=== PATIENT | female | born 1985 | race Caucasian/White ===

== ENCOUNTER → 2017-03-01 | Outpatient (CLI) | payer OTHER ==
[~2017-03-01] MED LIST: ABIL5TAB PO; ADDE20CA PO; AMOXICILLIN PO; AUGM500T34 PO; CETI10TA PO; DEPA500T OR; KLON1TAB OR; KLON2TAB OR; PERCOCET PO; PROVENTIL INH; TRAZ50TA OR; TYLENOL PO; XANA0.5T PO; ZOLO50TA OR
--- NOTE | 2017-03-01 16:31 | REP ---
ACUTE ABDOMINAL SERIES: 03/01/2017. Clinical history: Constipation. Abdominal pain. Comparison: Chest x-ray 12/30/2015, CT abdomen 01/23/2014. Findings:PA chest: Lungs are well inflated and without infiltrate, effusion, atelectasis or mass. The heart, mediastinal and hilar contours are normal. The aorta is intact. Airway is intact. There is no cardiomegaly, vascular redistribution or edema. No focal bone lesion identified. There is no free air under the diaphragm. Flat upright abdomen: An upright and two supine views were provided. There is no scoliosis. Pedicles, spinous and transverse processes intact. SI joints, sacral ala and foramina intact. The pelvic ring intact. Bilateral pelvic phleboliths in the deep pelvis noted. Gas pattern is nonspecific. There is a small amount of stool in the left colon only slightly more on the right and scattered in the transverse without a pattern to suggest constipation. Small bowel loops are mostly fluid-filled, but not dilated and there are no air-fluid levels on the upright view. No abnormal calcifications or visible mass Impression: 1. Nonspecific gas pattern without obstruction, mass or free air. No abnormal calcifications. 2. Negative PA chest. Signed by Lio Hernandez MD 03/01/2017 05:24 P
== END ==
LOC: M LRY 14:50
PROVIDERS: ATTEND Family Medicine
DX: K59.00 Constipation, unspecified (principal)

== ENCOUNTER → 2017-03-01 | Outpatient (REF) | payer OTHER, MEDICAID ==
[2017-03-02 12:06] LABS: BASO % 0.5 % (0.0-1.0); EOS # 0.2 K/mm3 (0.0-0.50); LARGE UNSTAINED CELL # 0.1 K/mm3 (0.0-0.4); LARGE UNSTAINED CELL % 1.1 % (0.0-4.0); LYMPH # 2.4 K/mm3 (1.5-6.5); LYMPH % 27.1 % (24.0-44.0); MEAN CORPUSCULAR HEMOGLOBIN 31.4 pg (27.0-33.0); MEAN CORPUSCULAR HGB CONC 32.1 g/dl (32.0-36.5); MEAN CORPUSCULAR VOLUME 97.8 fl (80.0-96.0); MONO # 0.5 K/mm3 (0.0-0.8); MONO % 5.4 % (0.0-5.0); NEUTROPHILS # 5.4 K/mm3 (1.8-7.7); NEUTROPHILS % 63.9 % (36.0-66.0); PLATELET COUNT, AUTOMATED 276 k/mm3 (150-450); RED CELL DISTRIBUTION WIDTH 12.7 % (11.5-14.5); WHITE BLOOD COUNT 8.5 K/mm3 (4.0-10.0)
[2017-03-02 12:30] LABS: ALBUMIN/GLOBULIN RATIO 1.14 (1.00-1.93); ALKALINE PHOSPHATASE 141 U/L (45-117); ALT/SGPT 30 U/L (12-78); ANION GAP 8 MEQ/L (8-16); AST/SGOT 18 U/L (15-37); BILIRUBIN,TOTAL 0.3 MG/DL (0.2-1.0); BLOOD UREA NITROGEN 11 MG/DL (7-18); CALCIUM LEVEL 9.3 MG/DL (8.5-10.1); CARBON DIOXIDE LEVEL 27 MEQ/L (21-32); CHLORIDE LEVEL 104 MEQ/L (98-107); CREATININE FOR GFR 0.78 MG/DL (0.55-1.02); FREE T4 0.93 NG/DL (0.76-1.46); GLOMERULAR FILTRATION RATE > 60.0 (>60); GLUCOSE, FASTING 77 MG/DL (70-105); POTASSIUM SERUM 4.1 MEQ/L (3.5-5.1); SODIUM LEVEL 139 MEQ/L (136-145); TOTAL PROTEIN 7.5 GM/DL (6.4-8.2)
== END ==
LOC: M SFHCLERA 14:41
PROVIDERS: ATTEND Family Medicine
DX: K59.00 Constipation, unspecified (principal)

== ENCOUNTER → 2017-06-02 | Outpatient (CLI) | payer OTHER, MEDICAID ==
[~2017-06-02] MED LIST changes: +MELA3TAB PO; +MULT1TAB10 PO
== END ==
LOC: M LAB 16:18
PROVIDERS: ATTEND Internal Medicine Gastroenterology
DX: K58.2 Mixed irritable bowel syndrome (principal)

== ENCOUNTER → 2017-06-05 | Outpatient (REF) | payer OTHER, MEDICAID | LOC: M LAB REF 14:58 | PROVIDERS: ATTEND Internal Medicine Gastroenterology | DX: K58.2 Mixed irritable bowel syndrome (principal) ==

== ENCOUNTER → 2017-06-25 | Outpatient (CLI) | payer OTHER ==
[~2017-06-25] VITALS: Ht 170.2 cm; Wt 95.3 kg
[~2017-06-25] MED LIST changes: +NS 1,000 ML IV ONE
[2017-06-25 13:40] VITALS: BP 173/98
== END ==
LOC: M OPP 13:35
PROVIDERS: ATTEND Internal Medicine Gastroenterology
DX: Z53.9 Procedure and treatment not carried out, unspecified reason (principal)

== ENCOUNTER 2017-11-24 09:56 | Emergency (ER) | payer OTHER, MEDICAID ==
[2017-11-24] MEDS: ALBUTEROL SULFATE 2.5 MG/0.5 ML INH NEB SOLN NEB (10:35)
[2017-11-24 10:53] LABS: BASO % 0.5 % (0.0-1.0); EOS # 0.2 10^3/uL (0.0-0.50); EOS % 2.9 % (0.0-3.0); HEMATOCRIT 43.6 % (36.0-47.0); HEMOGLOBIN 14.5 g/dl (12.0-16.0); IMMATURE GRANULOCYTE % 0.3 % (0-0); LYMPH # 1.5 10^3/uL (1.5-4.5); LYMPH % 25.5 % (24.0-44.0); MEAN CORPUSCULAR HGB CONC 33.3 g/dl (32.0-36.5); MEAN CORPUSCULAR VOLUME 93.4 fl (80.0-96.0); MONO # 0.5 10^3/uL (0.0-0.8); NEUTROPHILS # 3.6 10^3/uL (1.8-7.7); NEUTROPHILS % 61.8 % (36.0-66.0); PLATELET COUNT, AUTOMATED 242 10^3/uL (150-450); RED BLOOD COUNT 4.67 10^6/uL (4.00-5.40); RED CELL DISTRIBUTION WIDTH 12.8 % (11.5-14.5); WHITE BLOOD COUNT 5.9 10^3/uL (4.0-10.0)
== END 2017-11-24 12:48 | disposition home or self-care (01) ==
LOC: M ED 09:56
DX: J02.0 Streptococcal pharyngitis (principal); J40 Bronchitis, not specified as acute or chronic; Z88.0 Allergy status to penicillin; Z87.09 Personal history of other diseases of the respiratory system; Z87.891 Personal history of nicotine dependence
CPT/HCPCS: 71046

== ENCOUNTER 2017-12-20 12:43 | Emergency (ER) | payer OTHER ==
[2017-12-20] MEDS ORDERED: IBUPROFEN 600 MG TAB As Ordered (17:27)
[2017-12-20] MEDS: KETOROLAC 30 MG/ML VIAL (J1885) IV (17:30)
[2017-12-20] MEDS: CYCLOBENZAPRINE 10 MG TAB PO (17:30)
[2017-12-20] MEDS ORDERED: IBUPROFEN 600 MG TAB PO (17:30)
== END 2017-12-20 19:00 | disposition home or self-care (01) ==
LOC: M ED 12:43
DX: M54.9 Dorsalgia, unspecified (principal); M62.830 Muscle spasm of back; G89.29 Other chronic pain; J45.909 Unspecified asthma, uncomplicated; F90.9 Attention-deficit hyperactivity disorder, unspecified type; F31.9 Bipolar disorder, unspecified; Z91.5 Personal history of self-harm; Z87.39 Personal history of other diseases of the musculoskeletal system and connective tissue; Z87.19 Personal history of other diseases of the digestive system; Z98.890 Other specified postprocedural states; Z87.81 Personal history of (healed) traumatic fracture; Z88.0 Allergy status to penicillin
CPT/HCPCS: J1885

== ENCOUNTER 2018-01-31 07:18 | Emergency (ER) | payer OTHER ==
[2018-01-31] MEDS: MORPHINE 2 MG/ML 1ML SYRINGE (J2270) IV ×3 (08:12→09:38)
[2018-01-31] MEDS: ONDANSETRON 4MG/2ML VIAL (J2405) IV (08:12)
[2018-01-31 08:17] LABS: BASO % 0.5 % (0.0-1.0); EOS # 0.2 10^3/uL (0.0-0.50); EOS % 2.7 % (0.0-3.0); HEMATOCRIT 42.4 % (36.0-47.0); HEMOGLOBIN 14.5 g/dl (12.0-16.0); IMMATURE GRANULOCYTE % 0.1 % (0-3.0); LYMPH # 2.3 10^3/uL (1.5-4.5); LYMPH % 27.5 % (24.0-44.0); MEAN CORPUSCULAR HGB CONC 34.2 g/dl (32.0-36.5); MEAN CORPUSCULAR VOLUME 93.6 fl (80.0-96.0); MONO # 0.6 10^3/uL (0.0-0.8); MONO % 6.7 % (0.0-5.0); NEUTROPHILS # 5.1 10^3/uL (1.8-7.7); NEUTROPHILS % 62.5 % (36.0-66.0); PLATELET COUNT, AUTOMATED 256 10^3/uL (150-450); RED BLOOD COUNT 4.53 10^6/uL (4.00-5.40); RED CELL DISTRIBUTION WIDTH 13.1 % (11.5-14.5); WHITE BLOOD COUNT 8.2 10^3/uL (4.0-10.0)
[2018-01-31 08:22] LABS: KETONE, URINE AUTO RFX NEGATIVE (NEGATIVE); LEUKOCYTE ESTERASE UR AUTO RFX NEGATIVE (NEGATIVE); MUCUS, URINE RFX SMALL (NEGATIVE); NITRITE, URINE AUTO RFX NEGATIVE (NEGATIVE); RBC, URINE AUTO RFX 2 /HPF (0-3); SPECIFIC GRAVITY UR AUTO RFX 1.023 (1.002-1.035); SQUAM EPITHELIAL CELL UR AURFX 2 /HPF (0-6); WBC, URINE AUTO RFX 0 /HPF (0-3)
[2018-01-31 08:35] LABS: CONTROL LINE HCG INT CTR LINE PRESENT; HCG, SERUM QUALITATIVE NEGATIVE (NEGATIVE)
[2018-01-31 08:41] LABS: ALBUMIN 4.3 GM/DL (3.2-5.2); ALBUMIN/GLOBULIN RATIO 1.16 (1.00-1.93); ALKALINE PHOSPHATASE 122 U/L (45-117); ALT/SGPT 37 U/L (12-78); ANION GAP 8 MEQ/L (8-16); AST/SGOT 23 U/L (7-37); BILIRUBIN,DIRECT 0.2 MG/DL (0.0-0.2); BILIRUBIN,TOTAL 0.6 MG/DL (0.2-1.0); BLOOD UREA NITROGEN 14 MG/DL (7-18); CARBON DIOXIDE LEVEL 28 MEQ/L (21-32); CHLORIDE LEVEL 103 MEQ/L (98-107); CREATININE FOR GFR 0.83 MG/DL (0.55-1.30); GLOMERULAR FILTRATION RATE > 60.0 (>60); GLUCOSE, FASTING 103 MG/DL (70-100); LIPASE 102 U/L (73-393); POTASSIUM SERUM 3.7 MEQ/L (3.5-5.1); SODIUM LEVEL 139 MEQ/L (136-145)
[2018-01-31 10:37] LABS: CHLAMYDIA DNA AMPLIFICATION NEGATIVE (NEGATIVE); GC DNA AMPLIFICATION NEGATIVE (NEGATIVE)
[2018-01-31] MEDS ORDERED: diazePAM 2 MG TAB PO (11:30)
== END 2018-01-31 11:00 | disposition home or self-care (01) ==
LOC: M ED 07:18
DX: R10.31 Right lower quadrant pain (principal); R03.0 Elevated blood-pressure reading, without diagnosis of hypertension; N76.0 Acute vaginitis; R74.8 Abnormal levels of other serum enzymes; N70.11 Chronic salpingitis; J45.909 Unspecified asthma, uncomplicated; F41.9 Anxiety disorder, unspecified; F33.9 Major depressive disorder, recurrent, unspecified; M54.9 Dorsalgia, unspecified; G89.29 Other chronic pain; M51.9 Unspecified thoracic, thoracolumbar and lumbosacral intervertebral disc disorder; E28.2 Polycystic ovarian syndrome; Z86.14 Personal history of Methicillin resistant Staphylococcus aureus infection
CPT/HCPCS: J2405

== ENCOUNTER → 2018-02-08 | Outpatient (REF) | payer OTHER, MEDICAID ==
[2018-02-10 14:13] LABS: HPV HYBRID CAPTURE II Negative (Negative)
== END ==
LOC: M SFHCWAGY 10:55
DX: Z12.4 Encounter for screening for malignant neoplasm of cervix (principal)

== ENCOUNTER → 2018-11-03 | Outpatient (REF) | payer OTHER, MEDICAID | LOC: M SFHCLERA 14:01 | DX: J40 Bronchitis, not specified as acute or chronic (principal) ==

== ENCOUNTER → 2018-12-06 | Outpatient (CLI) | payer OTHER, MEDICAID ==
[~2018-12-06] MED LIST changes: +CYCL7.5T32 PO; +E-ZMIS3 XX; +METR-201 PO; +NAPR-885 PO; -NS 1,000 ML IV ONE; +OXYC1TAB23 PO; +PRED20TA PO; +PROAAER10 INH; +TESS100C PO; +ZITHTAB PO
== END ==
LOC: M LRY 11:22
PROVIDERS: ATTEND Family Medicine
DX: M53.3 Sacrococcygeal disorders, not elsewhere classified (principal)

== ENCOUNTER → 2018-12-06 | Outpatient (CLI) | payer OTHER ==
--- NOTE | 2018-12-07 02:31 | REP ---
Clinical: SI joint pain Technique: AP, inlet, and bilateral oblique views of the sacroiliac joints. Findings: Sacroiliac joints are symmetric and normal in appearance. The surrounding osseous structures are intact and unremarkable. Soft tissues appear normal. IUD and scattered phleboliths identified within the pelvis. Impression: Normal symmetric sacroiliac joints. Electronically Signed by Singh Reina MD 12/07/2018 02:22 A
== END ==
LOC: M LRY 10:30
PROVIDERS: ATTEND Family Medicine
DX: M53.3 Sacrococcygeal disorders, not elsewhere classified (principal)

== ENCOUNTER → 2018-12-10 | Outpatient (REF) | payer OTHER, MEDICAID ==
[2018-12-10 17:19] LABS: ALBUMIN 4.2 GM/DL (3.2-5.2); ALT/SGPT 30 U/L (12-78); BILIRUBIN,TOTAL 0.5 MG/DL (0.2-1.0); BLOOD UREA NITROGEN 13 MG/DL (7-18); CARBON DIOXIDE LEVEL 28 MEQ/L (21-32); CHLORIDE LEVEL 105 MEQ/L (98-107); CHOLESTEROL LEVEL 210 MG/DL (<200); CHOLESTEROL RISK RATIO 3.559 (<5); CREATININE FOR GFR 0.82 MG/DL (0.55-1.30); FREE T4 0.88 NG/DL (0.76-1.46); GLOMERULAR FILTRATION RATE > 60.0 (>60); GLUCOSE, FASTING 84 MG/DL (70-100); HDL CHOLESTEROL 59 MG/DL (>40); LDL CHOLESTEROL 139 MG/DL (<100); NON-HDL-C 151 MG/DL; POTASSIUM SERUM 4.3 MEQ/L (3.5-5.1); SODIUM LEVEL 140 MEQ/L (136-145); TRIGLYCERIDES LEVEL 62 MG/DL (<150)
[2018-12-10 17:22] LABS: BASO % 0.4 % (0.0-1.0); EOS # 0.1 10^3/uL (0.0-0.50); EOS % 1.9 % (0.0-3.0); HEMATOCRIT 44.8 % (36.0-47.0); HEMOGLOBIN 14.9 g/dl (12.0-15.5); LYMPH # 2.3 10^3/uL (1.5-4.5); LYMPH % 33.7 % (24.0-44.0); MEAN CORPUSCULAR HEMOGLOBIN 31.4 pg (27.0-33.0); MEAN CORPUSCULAR HGB CONC 33.3 g/dl (32.0-36.5); MEAN CORPUSCULAR VOLUME 94.3 fl (80.0-96.0); MONO # 0.6 10^3/uL (0.0-0.8); MONO % 8.1 % (0.0-5.0); NEUTROPHILS # 3.8 10^3/uL (1.8-7.7); NEUTROPHILS % 55.8 % (36.0-66.0); PLATELET COUNT, AUTOMATED 327 10^3/uL (150-450); RED BLOOD COUNT 4.75 10^6/uL (4.00-5.40); WHITE BLOOD COUNT 6.8 10^3/uL (4.0-10.0)
== END ==
LOC: M SFHCLERA 09:36
PROVIDERS: ATTEND Family Medicine
DX: E66.9 Obesity, unspecified (principal)

== ENCOUNTER → 2019-01-16 | Outpatient (REF) | payer OTHER, MEDICAID | LOC: M SFHCLERA 09:07 | PROVIDERS: ATTEND Physician Assistant | DX: R50.9 Fever, unspecified (principal) ==

== ENCOUNTER → 2019-06-26 | Outpatient (CLI) | payer OTHER, MEDICAID ==
[~2019-06-26] MED LIST changes: -METR-201 PO; +METR-265 PO; -PERCOCET PO
--- NOTE | 2019-06-26 11:14 | REP ---
LEFT SHOULDER, THREE VIEWS: There is no evidence of an acute fracture, dislocation or intrinsic bone disease. IMPRESSION: No fracture or dislocation. Electronically Signed by Kwan Sanchez MD 06/28/2019 07:43 A
== END ==
LOC: M LRY 10:25
PROVIDERS: ATTEND Nurse Practitioner Family
DX: M25.512 Pain in left shoulder (principal)

== ENCOUNTER → 2021-04-17 | Outpatient (CLI) | payer OTHER ==
[~2021-04-17] MED LIST changes: -MELA3TAB PO; +MELA3TAB70 PO
== END ==
LOC: M OUTALCOH 09:40
PROVIDERS: ATTEND Psychiatry & Neurology Psychiatry
DX: F10.20 Alcohol dependence, uncomplicated (principal)

== ENCOUNTER → 2021-05-21 | Outpatient (RCR) | payer OTHER | LOC: M OUTALCOH 04-24 13:14 | PROVIDERS: ATTEND Psychiatry & Neurology Psychiatry | DX: F10.20 Alcohol dependence, uncomplicated (principal) ==

== ENCOUNTER → 2021-05-26 | Outpatient (CLI) | payer OTHER ==
--- NOTE | 2021-05-27 16:31 | SLEEPCENT ---
NOCTURNAL POLYSOMNOGRAPHY DATE: 05/26/2021 ORDERED BY: RACHEL Cruz Nocturnal polysomnography was performed for evaluation of sleep physiology in this patient with a history of excessive somnolence and nonrestorative sleep. 8 hours and 6 minutes of data were reviewed. There were 381 minutes of sleep identified. Sleep latency was prolonged at 31 minutes. REM latency was prolonged at 280 minutes. Sleep architecture showed severe fragmentation. There were two brief REM cycles. Overall sleep efficiency was 79.4%. The electrocardiogram showed an underlying rhythm with an average heart rate of 80 beats per minute. EEG showed normal waveforms for wake and sleep. There were 737 respiratory events identified of 10 seconds in duration or greater for an apnea-hypopnea index of 116.1. The events were primarily obstructive, 62 mixed apneas wee seen. The events were not exclusive to sleep stage nor body posture.. Arousals from respiratory events occurred 57.8 times per hour and oxygen desaturations were seen into the 60s. There was some limb activity, but arousals from limb events were few. IMPRESSION: Severe obstructive sleep apnea syndrome (G47.33), apnea-hypopnea index 116.1. RECOMMENDATION: The patient should be encouraged to return to [facility]. In the interim, alcohol and sedative avoidance should be practiced and caution exercised during the operation of motor vehicles.
== END ==
LOC: M SLEEP 20:00
PROVIDERS: ATTEND Nurse Practitioner Family
DX: G47.33 Obstructive sleep apnea (adult) (pediatric) (principal)

== ENCOUNTER 2021-06-18 15:46 | Outpatient (RCR) | payer OTHER | END 2021-06-21 | LOC: M OUTALCOH 15:46 | PROVIDERS: ATTEND Psychiatry & Neurology Psychiatry | DX: F10.20 Alcohol dependence, uncomplicated (principal) ==

== ENCOUNTER → 2021-06-20 | Outpatient (CLI) | payer OTHER ==
--- NOTE | 2021-06-23 17:44 | SLEEPCENT ---
DATE: 06/20/2021 ORDERED BY: MADI Cruz Nocturnal polysomnography was performed for the titration of pressure therapy in this patient with obstructive sleep apnea syndrome, apnea-hypopnea index of 116.1. For testing a ResMed F30 full face mask of medium size was used, 4 cm of water pressure were applied to the circuit, and the lights were extinguished. Seven hours and 36 minutes of data were reviewed. There were 421 minutes of sleep identified. Sleep latency was mildly prolonged at 15 minutes. REM latency was normal at 112 minutes. Sleep architecture was good with four REM cycles. Overall sleep efficiency was 93.9%. The electrocardiogram showed a sinus rhythm with an average heart rate of 65 beats per minute. EEG showed normal waveforms for wake and sleep. Respiratory events were fully palliated with CPAP at a pressure of +12 and remaining measures of sleep physiology were normal. IMPRESSION: Obstructive sleep apnea syndrome (G47.33). RECOMMENDATION: Nightly use of pressure therapy 12 cm of water. cc: MAURA GREEN MD
== END ==
LOC: M SLEEP 20:00
PROVIDERS: ATTEND Nurse Practitioner Family
DX: G47.33 Obstructive sleep apnea (adult) (pediatric) (principal)

== ENCOUNTER 2024-09-08 17:58 | Emergency (ER) | payer BC, MEDICARE, OTHER ==
[~2024-09-08] VITALS: Ht 167.6 cm; Wt 126.5 kg
[~2024-09-08 17:58] MED LIST changes: +HYDR-3363; +SPIR50TA4
[2024-09-08] MEDS ORDERED: CEFD1CAP9 (18:13)
[2024-09-08] MEDS ORDERED: METH-1022 (18:13)
[2024-09-08] MEDS ORDERED: BENZ-18 (18:13)
[2024-09-08] MEDS ORDERED: PRED20TA (18:13)
[2024-09-08 18:53] LABS: BASO # 0.1 10^3/uL (0.0-0.2); BASO % 0.5 % (0.0-1.0); EOS # 0.3 10^3/uL (0.0-0.5); EOS % 2.6 % (0.0-3.0); HEMATOCRIT 41.9 % (36.0-47.0); HEMOGLOBIN 14.4 g/dl (12.0-15.5); LYMPH # 3.1 10^3/uL (1.5-5.0); LYMPH % 28.8 % (24.0-44.0); MEAN CORPUSCULAR HEMOGLOBIN 34.2 pg (27.0-33.0); MEAN CORPUSCULAR HGB CONC 34.4 g/dl (32.0-36.5); MEAN CORPUSCULAR VOLUME 99.5 fl (80.0-96.0); MONO # 0.5 10^3/uL (0.0-0.8); MONO % 4.8 % (2.0-8.0); NEUTROPHILS # 6.9 10^3/uL (1.5-8.5); PLATELET COUNT, AUTOMATED 316 10^3/uL (150-450); RED BLOOD COUNT 4.21 10^6/uL (4.00-5.40); WHITE BLOOD COUNT 10.9 10^3/uL (4.0-10.0)
[2024-09-08 19:00] LABS: ERYTHROCYTE SEDIMENTATION RATE 55 mm/hr (0-20)
[2024-09-08 19:21] LABS: ALBUMIN 3.8 G/DL (3.2-5.2); ALKALINE PHOSPHATASE 183 U/L (46-116); ALT/SGPT 206 U/L (7.0-40); AST/SGOT 266 U/L (<34); BILIRUBIN,DIRECT 0.3 MG/DL (<0.4); BILIRUBIN,TOTAL 0.7 MG/DL (0.3-1.2); BLOOD UREA NITROGEN 7 MG/DL (9-23); CALCIUM LEVEL 9.4 MG/DL (8.5-10.1); CARBON DIOXIDE LEVEL 26 MMOL/L (20-31); CHLORIDE LEVEL 103 MMOL/L (98-107); CREATININE FOR GFR 0.57 MG/DL (0.55-1.30); GLOMERULAR FILTRATION RATE > 60.0 (>60); GLUCOSE, FASTING 176 MG/DL (60-100); POTASSIUM SERUM 3.9 MMOL/L (3.5-5.1); SODIUM LEVEL 137 MMOL/L (136-145)
[2024-09-08 19:22] LABS: HCG, SERUM QUALITATIVE NEGATIVE (NEGATIVE)
[2024-09-08] MEDS: IBUPROFEN 600MG TAB PO ONE (19:42)
[2024-09-08 21:10] VITALS: BP 141/80; TEMP 98.1; O2SAT 97
== END 2024-09-08 21:53 | disposition home or self-care (01) ==
LOC: M ED 17:58
DX: L29.0 Pruritus ani (principal); J45.909 Unspecified asthma, uncomplicated; F90.9 Attention-deficit hyperactivity disorder, unspecified type; Z79.51 Long term (current) use of inhaled steroids; Z79.2 Long term (current) use of antibiotics; Z79.810 Long term (current) use of selective estrogen receptor modulators (SERMs); Z79.52 Long term (current) use of systemic steroids